=== PATIENT | female | born 1955 | race Caucasian/White ===

== ENCOUNTER 2017-02-16 06:30 | Emergency (ER) | payer SELFPAY ==
[2017-02-16] MEDS ORDERED: MORPHINE SULFATE 10 MG/ML INJ IV ONE ×2 (08:06→09:15)
[2017-02-16 08:17] LABS: ABSOLUTE LYMPHOCYTES (AUTO) 1.3 10^3/uL (0.5-4.7); ABSOLUTE MONOCYTES (AUTO) 0.2 10^3/uL (0.1-1.4); BASOPHILS % (AUTO) 0.8 % (0-2); EOSINOPHILS % (AUTO) 0.2 % (0-6); HEMATOCRIT 33.2 % (36.0-47.0); HEMOGLOBIN 11.2 g/dL (12.0-15.5); HGB HCT DIFFERENCE 0.4; LYMPHOCYTES % (AUTO) 23.8 % (13-45); MEAN CORPUSCULAR HEMOGLOBIN 31.6 pg (27.0-33.4); MEAN CORPUSCULAR HGB CONC 33.6 g/dL (32.0-36.0); MEAN CORPUSCULAR VOLUME 94 fl (80-97); MONOCYTES % (AUTO) 3.7 % (3-13); RED BLOOD COUNT 3.53 10^6/uL (3.72-5.28); RED CELL DISTRIBUTION WIDTH 12.9 % (11.5-14.0); SEGMENTED NEUTROPHILS % (AUTO) 71.5 % (42-78); WHITE BLOOD COUNT 5.5 10^3/uL (4.0-10.5)
--- NOTE | 2017-02-16 08:19 | ER Document Report ---
ED GI/ <RAY TALAVERA - Last Filed: 02/16/17 14:34> - General TRAVEL OUTSIDE OF THE [place] IN LAST 30 DAYS: No <JAMI ULLOA - Last Filed: 02/16/17 18:42> - General Chief Complaint: Abdominal Pain Stated Complaint: ABDOMINAL PAIN Notes: Patient is a 61-year-old female presents emergency department complaining of right lower quadrant pain was sudden onset at 7 PM last evening. States that it is constant dull ache with sharp stabbing intermittent pain. She admits to nausea and diarrhea. She states she has had 10 loose bowel movements today with minimal bleeding. She denies any clots, hematochezia. She denies any pyuria, hematuria, urinary frequency, retention, vaginal pain, discharge, bleeding. Denies any history of kidney stones. Does not have a primary care provider Denies any past medical or past surgical history Admits to social tobacco and alcohol use. Denies any drug use. No known drug allergies (JAMI ULLOA) - Related Data Allergies/Adverse Reactions: No Known Allergies Allergy (Verified 11/09/12 13:52) Past Medical History - Social History Smoking Status: Current Some Day Smoker Chew tobacco use (# tins/day): No Frequency of alcohol use: None Drug Abuse: None Family History: Other - patient unaware of [employer] family history Patient has suicidal ideation: No Patient has homicidal ideation: No Renal/ Medical History: Denies: Hx Peritoneal Dialysis - Immunizations Hx Diphtheria, Pertussis, Tetanus Vaccination: Yes <JAMI ULLOA - Last Filed: 02/16/17 18:42> Review of Systems - Review of Systems Constitutional: No symptoms reported Cardiovascular: No symptoms reported Respiratory: No symptoms reported Gastrointestinal: See HPI Genitourinary: No symptoms reported Female Genitourinary: No symptoms reported -: Yes All other systems reviewed and negative <JAMI ULLOA - Last Filed: 02/16/17 18:42> Physical Exam <RAY TALAVERA - Last Filed: 02/16/17 14:34> <JAMI ULLOA - Last Filed: 02/16/17 18:42> - Vital signs Vitals: Temp Pulse Resp BP Pulse Ox 97.7 F 73 18 192/77 H 99 02/16/17 06:43 02/16/17 06:43 02/16/17 06:43 02/16/17 06:43 02/16/17 06:43 - Notes Notes: PHYSICAL EXAM GENERAL: Alert, interacts well. HEAD: Normocephalic, atraumatic. EYES: Pupils equal, round, and reactive to light. Extraocular movements intact. ENT: Oral mucosa moist, tongue midline. NECK: Full range of motion. Supple. Trachea midline. LUNGS: Clear to auscultation bilaterally, no wheezes, rales, or rhonchi. No respiratory distress. HEART: Regular rate and rhythm. No murmurs, gallops, or rubs. ABDOMEN: Soft, nondistended, moderate tenderness RLQ. No guarding, rebound, or rigidity.. Bowel sounds present in all 4 quadrants. FEMALE : Normal external exam. No evidence of lesions, lacerations, bruising or vesicles. Speculum exam normal cervix closed. No evidence of vaginal discharge with odor. No evidence of lesions. No vaginal bleeding. Bimanual exam normal no cervical motion tenderness. No adnexal mass, (+) right adnexal tenderness EXTREMITIES: Moves all 4 extremities spontaneously. No edema, radial and dorsalis pedis pulses 2/4 bilaterally. No cyanosis. NEUROLOGICAL: Alert and oriented x4. Normal speech. PSYCH: Normal affect, normal mood. SKIN: Warm, dry, normal turgor. No rashes or lesions noted. (JAMI ULLOA) Course - Laboratory Result Diagrams: 02/16/17 07:55 02/16/17 07:55 <RAY TALAVERA - Last Filed: 02/16/17 14:34> - Laboratory Result Diagrams: 02/16/17 07:55 02/16/17 07:55 - Diagnostic Test Radiology reviewed: Image reviewed, Reports reviewed <JAMI ULLOA - Last Filed: 02/16/17 18:42> - Re-evaluation Re-evalutation: 02/16/17 14:34 Patient examined thinly of the mid-level provider. Patient does have some right lower quadrant tenderness. Vital signs otherwise remained stable. I agree with studies ordered by mental provider. Also at this time agree with assessment and plan (RAY TALAVERA) 02/16/17 13:03 Patient is a 6-year-old female presents emergency department for right lower quadrant pain with somnolence 7 PM last evening. Physical exam concerning for appendicitis versus. Torsion. Labs today reveal elevated lactic acid at 4.8. Patient was initiated on IV fluids based on this and broad-spectrum antibiotics. CT the abdomen and pelvis did reveal paraovarian freee fluid concerning for mass vs cyst. Pelvic exam shows right adnexal tenderness so patient was sent for a transvaginal ultrasound. Transvaginal ultrasound shows concern for torsion versus mass. On-call [facility] physician Dr. Pattie Lou 02/16/17 14:10 Dr. Lou has recommended transfer with concern for malignancy and feels patient would be better served at a tertiary center where oncology is available oncall as well as OBGYN. Patient is agreeable to plan. Transfer accepted by by OBGYN at [facility] Dr. Chris. 02/16/17 16:14 Patient hemodynamically stable, no acute distress and afebrile. Patient is stable for transfer Per [facility] protocol and guidelines, this case was discussed with supervising physician Dr. Ray Talavera prior to transfer (JAMI ULLOA) - Vital Signs Vital signs: Temp Pulse Resp BP Pulse Ox 98.5 F 73 33 H 133/75 H 99 02/16/17 14:00 02/16/17 06:43 02/16/17 14:17 02/16/17 14:17 02/16/17 14:17 - Laboratory Laboratory results interpreted by me: 02/16/17 02/16/17 02/16/17 07:55 07:55 07:55 RBC 3.53 L Hgb 11.2 L Hct 33.2 L Carbon Dioxide 21 L Anion Gap 20 H Glucose 206 H Lactic Acid 4.8 H Total Protein 8.9 H Albumin 5.2 H Urine Protein Urine Glucose (UA) Urine Ketones Urine Ascorbic Acid 02/16/17 02/16/17 07:55 11:20 RBC Hgb Hct Carbon Dioxide Anion Gap Glucose Lactic Acid 4.0 H Total Protein Albumin Urine Protein 30 H Urine Glucose (UA) >=500 H Urine Ketones 20 H Urine Ascorbic Acid 20 H Discharge <RAY TALAVERA - Last Filed: 02/16/17 14:34> <JAMI ULLOA - Last Filed: 02/16/17 18:42> - Discharge Clinical Impression: Adnexal mass Condition: Stable Disposition: [facility]
[2017-02-16 08:35] LABS: APPEARANCE,URINE SLIGHTLY-CLOUDY; BILIRUBIN,URINE NEGATIVE (NEGATIVE); GLUCOSE, URINE >=500 mg/dL (NEGATIVE); KETONES,URINE 20 mg/dL (NEGATIVE); LEUKOCYTE ESTERASE,URINE NEGATIVE (NEGATIVE); NITRITE,URINE NEGATIVE (NEGATIVE); PROTEIN,URINE 30 mg/dL (NEGATIVE); UROBILINOGEN,URINE NEGATIVE mg/dL (<2.0)
[2017-02-16 08:37] LABS: ALANINE AMINOTRANSFERASE 43 U/L (9-52); ALBUMIN 5.2 g/dL (3.5-5.0); ALKALINE PHOSPHATASE 116 U/L (38-126); ASPARTATE AMINO TRANSFERASE 36 U/L (14-36); BILIRUBIN,DIRECT 0.2 mg/dL (0.0-0.4); BILIRUBIN,TOTAL 0.6 mg/dL (0.2-1.3); BLOOD UREA NITROGEN 8 mg/dL (7-20); CALCIUM 9.9 mg/dL (8.4-10.2); CARBON DIOXIDE 21 mmol/L (22-30); CHLORIDE 101 mmol/L (98-107); CREATININE RESULT 0.62 mg/dL (0.52-1.25); GLUCOSE 206 mg/dL (75-110); LIPASE 149.6 U/L (23-300); POTASSIUM 4.1 mmol/L (3.6-5.0); SODIUM 142.2 mmol/L (137-145); TOTAL PROTEIN 8.9 g/dL (6.3-8.2)
[2017-02-16 08:59] LABS: ANION GAP 20 (5-19)
[2017-02-16] MEDS ORDERED: NORMAL SALINE 1000 ML 1,000 ML IV ONE ×2 (09:40→12:12)
[2017-02-16] MEDS ORDERED: AMPICILLIN SOD/SULBACTAM 3 GM VIAL IV ONE (10:07)
[2017-02-16 14:21] VITALS: BP 133/75
--- NOTE | 2017-02-16 14:24 | PDOC CONSULTATION ---
Consultation Consult Date: 02/16/17 Attending physician:: ALEXANDER SHINE Consult reason:: ovarian torsion History of Present Illness Patient complains of: Right sided pelvic pain. History of Present Illness: MOHINI GOMEZ is a 61 year old G0 with no postmenopausal bleeding who c/o 3 month h/o intermittent RLQ pain and abdominal bloating. Last night after doing housework pain became severe and associated with nausea and vomting. Past Medical History LMP: no known pmh Social History Smoking Status: Current Some Day Smoker - 1-1.5 ppd Family History Family History: CAD Parental Family History Reviewed: Yes - cad Children Family History Reviewed: No Sibling(s) Family History Reviewed.: No Medication/Allergy Home Medications: Ciprofloxacin HCl [Cipro 500 mg Tablet] 500 mg PO BID #20 tablet 11/09/12 No Home Medications 1 11/09/12 Allergies/Adverse Reactions: No Known Allergies Allergy (Verified 11/09/12 13:52) Review of Systems Gastrointestinal: PRESENT: bloating, diarrhea Genitourinary: ABSENT: dysuria, hematuria Physical Exam - Physical Exam Vital Signs: Temp Pulse Resp BP Pulse Ox 97.6 F 73 24 H 150/77 H 97 02/16/17 08:01 02/16/17 06:43 02/16/17 12:28 02/16/17 12:28 02/16/17 12:28 Intake & Output 02/15/17 02/16/17 02/17/17 06:59 06:59 06:59 Weight 64.6 kg General appearance: PRESENT: mild distress GI/Abdominal exam: PRESENT: mass - 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 ABSENT: cyanosis, rash Result Laboratory Results: 02/16/17 07:55 02/16/17 07:55 02/16/17 02/16/17 02/16/17 07:55 07:55 07:55 WBC 5.5 RBC 3.53 L Hgb 11.2 L Hct 33.2 L MCV 94 MCH 31.6 MCHC 33.6 RDW 12.9 Plt Count 244 Seg Neutrophils % 71.5 Lymphocytes % 23.8 Monocytes % 3.7 Eosinophils % 0.2 Basophils % 0.8 Absolute Neutrophils 4.0 Absolute Lymphocytes 1.3 Absolute Monocytes 0.2 Absolute Eosinophils 0.0 Absolute Basophils 0.0 Sodium 142.2 Potassium 4.1 Chloride 101 Carbon Dioxide 21 L Anion Gap 20 H BUN 8 Creatinine 0.62 Est GFR ( Amer) > 60 Est GFR (Non-Af Amer) > 60 Glucose 206 H Lactic Acid 4.8 H Calcium 9.9 Total Bilirubin 0.6 AST 36 ALT 43 Alkaline Phosphatase 116 Total Protein 8.9 H Albumin 5.2 H Lipase 149.6 Urine Color Urine Appearance Urine pH Ur Specific [place] Urine Protein Urine Glucose (UA) Urine Ketones Urine Blood Urine Nitrite Ur Leukocyte Esterase Urine WBC (Auto) Urine RBC (Auto) 02/16/17 02/16/17 07:55 11:20 WBC RBC Hgb Hct MCV MCH MCHC RDW Plt Count Seg Neutrophils % Lymphocytes % Monocytes % Eosinophils % Basophils % Absolute Neutrophils Absolute Lymphocytes Absolute Monocytes Absolute Eosinophils Absolute Basophils Sodium Potassium Chloride Carbon Dioxide Anion Gap BUN Creatinine Est GFR ( Amer) Est GFR (Non-Af Amer) Glucose Lactic Acid 4.0 H Calcium Total Bilirubin AST ALT Alkaline Phosphatase Total Protein Albumin Lipase Urine Color YELLOW Urine Appearance SLIGHTLY-CLOUDY Urine pH 6.0 Ur Specific [place] 1.010 Urine Protein 30 H Urine Glucose (UA) >=500 H Urine Ketones 20 H Urine Blood NEGATIVE Urine Nitrite NEGATIVE Ur Leukocyte Esterase NEGATIVE Urine WBC (Auto) 1 Urine RBC (Auto) 3 Impressions: Abdomen/Pelvis CT 02/16/17 09:01 IMPRESSION: 1. Normal appendix. 2. Moderate free fluid in the pelvis which look slightly complicated, possibly pneumoperitoneum. The right ovary is mildly prominent. If clinically warranted, pelvic ultrasound can be considered. Pelvis Ultrasound 02/16/17 11:05 IMPRESSION: Heterogeneous structure in the region of the right ovary. Differential includes mass as well as torsion. Otherwise, not well-defined or further characterized. There is free fluid in the pelvis. Status: Imported from PACS - 9 cm r adnexal mass with large solid component and couple cystic components...no blood flow seen on sono Assessment & Plan - Diagnosis (2) Ovarian torsion Plan: Case d/w Dr. Carrillo of anaesthesia who feels pt would be better served at tertiary care facility given age, tob abuse and lactic acidosis. Case d/w Dr. Mayers at [facility] who accpets pt in transfer. Plan surgery there.
[2017-02-16] MEDS ORDERED: HYDROMORPHONE HCL INJ/PF 2 MG/ML AMPULE IV ONE (14:31)
== END 2017-02-16 15:55 | disposition short-term general hospital (02) ==
LOC: ER 06:30
DX: R19.09 Other intra-abdominal and pelvic swelling, mass and lump (principal); R10.9 Unspecified abdominal pain; R10.31 Right lower quadrant pain; R11.0 Nausea; R19.7 Diarrhea, unspecified
CPT/HCPCS: 96376; 99285; 96374; 96375; 36415; 83690; 85025; 80053; 81001; 83605; 76856; 93976; 74177; J0295; J2270; J1170; J7030